=== PATIENT | female | born 1995 | race Caucasian/White ===

== ENCOUNTER 2024-11-01 08:28 | Emergency (ER) | payer MEDICAID, MEDICARE ==
[~2024-11-01] VITALS: Ht 154.9 cm; Wt 73.0 kg
[2024-11-01 08:46] VITALS: O2SAT 100
[2024-11-01 09:19] LABS: BASOPHILS % 0.6 % (0.0-2.0); EOSINOPHILS % 1.3 % (0.0-5.0); HEMATOCRIT. 40.5 % (36.0-48.0); HEMOGLOBIN. 13.5 g/dL (12.0-16.0); LYMPHOCYTES % 24.6 % (20.0-50.0); MEAN CORPUSCULAR HEMOGLOBIN 29.1 pg (28.0-32.0); MEAN CORPUSCULAR HGB CONC 33.3 g/dL (31.0-37.0); MEAN CORPUSCULAR VOLUME 87.5 fL (81.0-99.0); MEAN PLATELET VOLUME 9.1 fl (7.4-10.4); MONOCYTES % 7.3 % (2.0-8.0); NEUTROPHILS % 66.2 % (40.0-76.0); PLATELET 311 x1000/uL (130-400); RED BLOOD CELL COUNT 4.63 mill/uL (4.2-5.4); RED CELL DISTRIBUTION WIDTH 13.6 % (11.6-14.6); WHITE BLOOD COUNT 9.4 x1000/uL (4.5-11.0)
[2024-11-01 09:24] LABS: CHLORIDE 107 mEq/L (98-107); POTASSIUM 3.7 mEq/L (3.5-5.1); SODIUM 140 mEq/L (136-145)
[2024-11-01 09:25] LABS: CARBON DIOXIDE 23 mEq/L (21-32)
[2024-11-01 09:30] LABS: CREATININE 0.4 mg/dL (0.6-1.0); GLUCOSE 99 mg/dL (70-105); UREA NITROGEN BLOOD 8 mg/dL (9-23)
[2024-11-01 09:48] LABS: CLARITY URINE CLOUDY (CLEAR); COLOR URINE YELLOW (YELLOW); GLUCOSE URINE NEGATIVE (NEGATIVE); KETONES URINE 3+ (NEGATIVE); LEUKOCYTE ESTERASE URINE NEGATIVE (NEGATIVE); NITRITE URINE NEGATIVE (NEGATIVE); OCCULT BLOOD URINE NEGATIVE (NEGATIVE); PROTEIN URINE NEGATIVE (NEGATIVE); SPECIFIC GRAVITY URINE 1.023 (1.005-1.030)
[2024-11-01 10:00] LABS: ALANINE AMINOTRANSFERASE 12 IU/L (10-49); ALBUMIN 4.4 g/dL (3.2-4.8); ASPARTATE AMINOTRANSFERASE 18 IU/L (<34); BILIRUBIN DIRECT 0.3 mg/dL (<=3.0); BILIRUBIN TOTAL 0.8 mg/dL (0.1-1.0)
[2024-11-01 10:01] LABS: PROTEIN TOTAL 7.2 g/dL (6.0-8.3)
[2024-11-01 10:08] LABS: B-HCG QUANTITATIVE 4877 mIU/mL (<3)
[2024-11-01 10:19] LABS: BACTERIA URINE 2+; RBC URINE 0-2 /hpf (0-2); SQUAMOUS EPITHELIAL CELL URINE 3+ /lpf (RARE/1+); YEAST URINE NONE SEEN
[2024-11-01 13:00] VITALS: BP 120/78; PULSE 70; RESP 12; TEMP 36.7; O2SAT 100
== END 2024-11-01 13:03 | disposition home or self-care (01) ==
LOC: ER 08:28
DX: O20.9 Hemorrhage in early pregnancy, unspecified (principal); N83.291 Other ovarian cyst, right side; Z3A.01 Less than 8 weeks gestation of pregnancy
CPT/HCPCS: 36415; 76801; 80048; 80076; 81003; 84702; 85025; 86850; 86900; 99284